=== PATIENT | female | born 1990 | race African-American/Black ===

== ENCOUNTER 2018-12-27 23:45 | Emergency (ER) | payer BC, MEDICAID ==
[~2018-12-27] VITALS: Ht 167.6 cm; Wt 73.0 kg
[2018-12-28 01:21] LABS: HCG SCREEN NEGATIVE
[2018-12-28 01:46] LABS: *AMPHETAMINES SCREEN URINE NEGATIVE (NEGATIVE); *BENZODIAZEPINES SCREEN URINE NEGATIVE (NEGATIVE)
[2018-12-28 01:47] LABS: *COCAINE SCREEN URINE NEGATIVE (NEGATIVE); CANNABINOID URINE SCREEN NEGATIVE (NEGATIVE); METHADONE URINE SCREEN NEGATIVE (NEGATIVE)
[2018-12-28 01:48] LABS: OPIATES URINE SCREEN NEGATIVE (NEGATIVE); PHENCYCLIDINE URINE SCREEN NEGATIVE (NEGATIVE)
[2018-12-28 01:55] LABS: *BARBITURATES SCREEN URINE NEGATIVE (NEGATIVE)
[2018-12-28 02:20] VITALS: BP 107/65
== END 2018-12-28 02:20 | disposition home or self-care (01) ==
LOC: ER 23:45
DX: R00.2 Palpitations (principal); R07.89 Other chest pain; R06.02 Shortness of breath
CPT/HCPCS: 36415; 80305; 81025; 84702; 84703; 93005; 99284